=== PATIENT | female | born 1945 | race Caucasian/White ===

== ENCOUNTER 2020-04-23 20:56 | Emergency (ER) | payer OTHER ==
[2020-04-24 01:44] LABS: HEMOGLOBIN 14.4 gm/dl (12.3-15.3); RED BLOOD COUNT 4.91 M/UL (4.00-5.10); WHITE BLOOD COUNT 6.2 K/UL (4.5-11.0)
[2020-04-24 01:58] LABS: BUN/CREATININE RATIO 28 (0-10)
== END 2020-04-24 14:30 | disposition left against medical advice (07) ==
LOC: ER1 20:56
PROVIDERS: Emergency Medicine
DX: G93.89 Other specified disorders of brain (principal); Z53.20 Procedure and treatment not carried out because of patient's decision for unspecified reasons
CPT/HCPCS: 36415; 70450; 71045; 80053; 82550; 82553; 84484; 85025; 93005; 96374; 99285; J1100

== ENCOUNTER → 2020-08-19 | Outpatient (CLI) | payer OTHER | LOC: RAD 10:59 | DX: R05 Cough (principal); R91.1 Solitary pulmonary nodule | CPT/HCPCS: 71046 ==

== ENCOUNTER 2021-01-03 16:43 | Emergency (ER) | payer OTHER ==
[2021-01-03 18:27] LABS: HEMOGLOBIN 8.5 gm/dl (12.3-15.3); RED BLOOD COUNT 2.61 M/UL (4.00-5.10)
[2021-01-03 18:51] LABS: BUN/CREATININE RATIO 61 (0-10)
== END 2021-01-04 02:55 ==
LOC: ER1 16:43
PROVIDERS: Student in an Organized Health Care Education/Training Program
DX: H57.89 Other specified disorders of eye and adnexa (principal); E87.6 Hypokalemia
CPT/HCPCS: 70450; 70480; 80053; 85025; 99285